=== PATIENT | male | born 1990 | race Caucasian/White ===

== ENCOUNTER 2018-05-08 20:32 | Emergency (ER) | payer OTHER ==
[~2018-05-08] VITALS: Ht 172.7 cm; Wt 64.3 kg
[~2018-05-08 20:32] MED LIST: FEXO5TAB2 PO
[2018-05-08 20:33] VITALS: Ht 172.7 cm; Wt 64.3 kg
--- NOTE | 2018-05-08 22:03 | DIAGNOSTIC IMAGING REPORT ---
ULTRASOUND TESTES AND SCROTUM CLINICAL HISTORY: Right scrotal swelling. COMPARISON STUDY: No priors. TECHNIQUE: Real-time, grayscale, and color Doppler sonography of the testes and scrotum is performed. Images are reviewed in the transverse and longitudinal planes. FINDINGS: The testes are normal in size and homogeneous in echotexture. The right testis measures 4.6 x 2.2 x 2.9 cm and the left testis measures 4.1 x 1.8 x 3.2 cm. No intratesticular mass is seen. Testicular blood flow is normal and symmetric. Normal Doppler waveforms are identified in both testes. The epididymal heads are normal in appearance. The right epididymal head measures 0.9 cm in length and the left epididymal head measures 0.9 cm in length. No varicocele or hydrocele is seen. There is mild scrotal wall thickening and hyperemia identified on the right. IMPRESSION: 1. Unremarkable sonographic appearance of the testes. 2. There is right-sided scrotal wall thickening and hyperemia. Electronically signed by: Deonte Gardiner M.D. 05/08/2018 10:02 PM Dictated Date/Time: 05/08/2018 10:00 PM
[2018-05-08] MEDS ORDERED: AMOXICIL/CLAVU 875MG HOME PACK PO ONE (22:45)
[2018-05-08] MEDS ORDERED: AMOX875T PO (22:52)
[2018-05-08 22:59] VITALS: BP 129/74; PULSE 58; TEMP 37.1; O2SAT 99
--- NOTE | 2018-05-09 00:39 | EMERGENCY ROOM VISIT NOTE ---
History Report prepared by Dimitrios: Rajan Ledezma Under the Supervision of: Dr. Ernst Rodas M.D. First contact with patient: 20:53 Chief Complaint: TESTICULAR PAIN Stated Complaint: SWELLING MASS ON SCROTUM History of Present Illness The patient is a 27 year old male who presents to the Emergency Room with complaints of worsening swelling and itchiness of the scrotum beginning yesterday. The patient reports that he was working outside yesterday. He notes that the itchiness began yesterday, and he happened to notice the swelling when he urinated. He notes that he has been scratching the area often since the onset of his symptoms. The patient reports that he currently feels hot, and notes that his entire genital area is currently itchy. Pt denies LOC, headache, fevers, chills, diaphoresis, visual changes, neck pain , chest pain, breathing difficulties, nausea, vomiting, abdominal pain, back pain, melena, hematochezia, urinary symptoms, numbness, weakness, lymphadenopathy, or other complaints. Source of History: patient Onset: yesterday Position: other (scrotum) Quality: other (itchiness, swelling) Timing: worsening Note: currently "feels hot" Review of Systems See HPI for pertinent positives and negatives. A total of ten systems were reviewed and were otherwise negative. Past Medical & Surgical Medical Problems: (1) Stomach problems Surgical Problems: (1) History of repair of ACL Family History Patient reports no known family medical history. Social History Smoking Status: Current Every Day Smoker Alcohol Use: occasionally Drug Use: none Marital Status: in relationship Housing Status: lives with significant other Occupation Status: employed Current/Historical Medications Scheduled Amoxicillin & Pot Clavulanate (Augmentin 875-125 mg), 875 MG PO BID Scheduled PRN Fexofenadine-Pseudoephedrine (Roxann-D 12 Hour Allergy), 1 TAB PO BID PRN for Seasonal Allergies Allergies Coded Allergies: Cat Dander (Verified Allergy, Intermediate, ITCHY, WATERY EYES, SNEEZING, CONGESTION, 05/08/18) Dog Dander (Verified Allergy, Intermediate, ITCHY, WATERY EYES, SNEEZING, CONGESTION, 05/08/18) POLLEN (Verified Allergy, Intermediate, ITCHY, WATERY EYES, SNEEZING, CONGESTION, 05/08/18) [place] (Verified Allergy, Intermediate, ITCHY, WATERY EYES, SNEEZING, CONGESION, 05/08/18) Physical Exam Vital Signs Date Time Temp Pulse Resp B/P (MAP) Pulse Ox O2 Delivery O2 Flow Rate FiO2 05/08/18 22:59 37.1 58 18 129/74 99 05/08/18 22:16 58 129/74 99 Room Air 05/08/18 20:33 37.1 93 18 133/83 96 Room Air Physical Exam GENERAL: Awake, alert, well-appearing, in no distress HENT: Normocephalic, atraumatic. Oropharynx unremarkable. EYES: Normal conjunctiva. Sclera non-icteric. NECK: Supple. No nuchal rigidity. FROM. No masses. RESPIRATORY: Clear to auscultation. No wheezes. No rales. Normal respiratory effort. CARDIAC: Normal rate. Normal rhythm. No murmurs. No rubs. Extremities warm and well perfused. Pulses equal. No JVD. GI: Soft, non-distended. No tenderness to palpation. No rebound or guarding. No masses. RECTAL: Deferred. MUSCULOSKELETAL: Atraumatic. Chest examination reveals no tenderness. The back is symmetrical on inspection without obvious abnormality. There is no CVA tenderness to palpation. No joint edema. LOWER EXTREMITIES: Calves are equal size bilaterally and non-tender. No edema. No discoloration. NEURO: Normal sensorium. No sensory or motor deficits noted. SKIN: No rash or jaundice noted. GENITOURINARY: Normal penis. Right swelling of the scrotum. Testicles are nontender bilaterally. The left side of the scrotum appears normal. Medical Decision & Procedures ER Provider Diagnostic Interpretation: Radiology results as stated below per my review and radiologist interpretation: ULTRASOUND TESTES AND SCROTUM CLINICAL HISTORY: Right scrotal swelling. COMPARISON STUDY: No priors. TECHNIQUE: Real-time, grayscale, and color Doppler sonography of the testes and scrotum is performed. Images are reviewed in the transverse and longitudinal planes. FINDINGS: The testes are normal in size and homogeneous in echotexture. The right testis measures 4.6 x 2.2 x 2.9 cm and the left testis measures 4.1 x 1.8 x 3.2 cm. No intratesticular mass is seen. Testicular blood flow is normal and symmetric. Normal Doppler waveforms are identified in both testes. The epididymal heads are normal in appearance. The right epididymal head measures 0.9 cm in length and the left epididymal head measures 0.9 cm in length. No varicocele or hydrocele is seen. There is mild scrotal wall thickening and hyperemia identified on the right. IMPRESSION: 1. Unremarkable sonographic appearance of the testes. 2. There is right-sided scrotal wall thickening and hyperemia. Electronically signed by: Deonte Gardiner M.D. 05/08/2018 10:02 PM Dictated Date/Time: 05/08/2018 10:00 PM ED Course 2100: The patient was evaluated in room B7. A complete history and physical exam was performed. 2240: I reevaluated the patient, who stated that his symptoms are improved. I discussed results and discharge instructions: He verbalized understanding and agreement. The patient is ready for discharge. 2245: Ordered Augmentin 875 MG 1 homepack PO Medical Decision Triage Nursing notes reviewed and agree them. The patient's history was concerning for scrotal swelling. Differential diagnosis: Etiologies such as torsion, mass, infection, hernia, hydrocele, epididymitis, trauma, cellulitis, abscess, as well as others were entertained. Physical examination: As above. Isolated right scrotal swelling. ER treatment provided: Oral Augmentin home pack On reassessment the patient felt relief about the ultrasound results. Diagnostic interpretation by me: Imaging studies: Ultrasound as above. Normal testes and cord. No obvious abscess noted. The patient has some mild swelling of the right side of the scrotum. This is concerning for a early cellulitis. There is no abscess noted. I see no folliculitis. Nothing drainable on ultrasound. I discussed initiation of Augmentin and close follow-up. Patient feels comfortable. If he worsens in any way he will be back. I gave my usual and customary discussion regarding this issue. By the evaluation outlined above other emergent etiologies such as those listed in the differential, as well as others, were deemed relatively unlikely. The patient was educated about the findings as listed above. All questions were answered and the patient was pleased with the treatment. Return instructions were outlined and the patient was discharged in stable condition. The patient was referred to his PCP for follow-up for a recheck of the current condition. Medication Reconcilliation Current Medication List: was personally reviewed by me Blood Pressure Screening Patient's blood pressure: Normal blood pressure Blood pressure disposition: Did not require urgent referral Impression Primary Impression: Right scrotal cellulitis Scribe Attestation The scribe's documentation has been prepared under my direction and personally reviewed by me in its entirety. I confirm that the note above accurately reflects all work, treatment, procedures, and medical decision making performed by me. Departure Information Dispostion Home / Self-Care Prescriptions Amoxicillin & Pot Clavulanate (Augmentin 875-125 mg) 1 Tab Tab 875 MG PO BID for 9 Days, #18 TAB Prov: Ernst Rodas MD 05/08/18 Referrals No Doctor, Assigned (PCP) Forms HOME CARE DOCUMENTATION FORM, IMPORTANT VISIT INFORMATION, WORK / SCHOOL INSTRUCTIONS Patient Instructions My [facility] Additional Instructions Amoxicillin Clavulanate (Augmentin) 875mg: Take one pill twice daily for 10 days for your infection. All antibiotics can cause diarrhea. If this occurs and you feel worse or it does not resolve in 1-2 days follow up with your doctor or return to the Emergency Department as this could be signs of serious underlying problems. Any medication can cause an allergic reaction, stop the pills immediately and return to the ER for rash, hives, breathing difficulties, or swelling. Ibuprofen(Motrin, Advil) may be used for fever or pain. Use 600mg every six hours as needed. Take with food. Avoid using more than 2400mg in a 24 hour period. Do not use 2400mg per day for more than three consecutive days without physician direction. Prolonged inappropriate use can lead to stomach upset or ulcers. (AND/OR) Acetaminophen(Tylenol) may be used for fever or pain. Use 1000mg every six hours as needed. Avoid using more than 4000mg in a 24 hour period. Warm compresses to the affected area 4 times daily for 15-20 minutes. Rest and drink plenty of fluids. Continue current medications. Return to the ER for severe pain, persistent fevers, spreading redness, or any worsening of your condition. Follow up with your primary physician within 2-3 days for a recheck of the current condition.
== END 2018-05-08 22:59 | disposition home or self-care (01) ==
LOC: C.EDB 20:32
DX: N49.2 Inflammatory disorders of scrotum (principal); F17.210 Nicotine dependence, cigarettes, uncomplicated; Z91.048 Other nonmedicinal substance allergy status